=== PATIENT | male | born 1960 | race Caucasian/White ===

== ENCOUNTER 2019-01-02 21:12 | Inpatient (IN) | payer MEDICAID ==
[~2019-01-02] VITALS: Ht 177.8 cm; Wt 54.7 kg
[2019-01-02 22:28] LABS: MEAN CORPUSCULAR HEMOGLOBIN 29.7 pg (27.5-34.5); MEAN CORPUSCULAR HGB CONC 33.5 g/dL (33.2-36.2); MEAN CORPUSCULAR VOLUME 88.7 fL (81-97); MEAN PLATELET VOLUME 8.3 fL (7.4-10.4); PLATELET COUNT 444 x10^3/uL (130-400); RED CELL DISTRIBUTION WIDTH 13.2 % (9.4-14.8)
--- NOTE | 2019-01-02 22:38 | NUR ---
pt in room, c/o pain in throat and difficulty swallowing, daignosed with throat cx 06/07, stopped treatment 08/07, declined g tube 10/07.
[2019-01-02 22:40] LABS: ALBUMIN 3.4 g/dL (3.4-5.0); ANION GAP 7 mmol/L (5-15); CALCIUM 9.2 mg/dL (8.5-10.1); CHLORIDE 98 mmol/L (98-107)
[2019-01-02 22:43] LABS: ALANINE AMINOTRANSFERASE 28 U/L (12-78); ALKALINE PHOSPHATASE 148 U/L (45-117); BILIRUBIN,TOTAL 1.2 mg/dL (0.2-1.0); CREATININE 0.99 mg/dL (0.7-1.3); MD YES; TOTAL PROTEIN 8.1 g/dL (6.4-8.2)
[2019-01-02 22:45] LABS: <PLATELET ESTIMATE> INCREASED; <PLT MORPHOLOGY> NORMAL PLT MORPH; <RBC MORPHOLOGY> NORMAL; EOS#(MANUAL) 0.18 x10^3/uL (0.0-0.4); EOS% (MANUAL) 1 % (1-7); LYMPH#(MANUAL) 2.12 x10^3/uL (1-3.4); LYMPHS% (MANUAL) 12 % (22-44); MONOS#(MANUAL) 1.24 x10^3/uL (0.3-2.7); MONOS% (MANUAL) 7 % (2-9); REACTIVE LYMPHS # (MANUAL) 0.89 x10^3/uL (0-0); REACTIVE LYMPHS % (MANUAL) 5 % (0-0); SEG#(MANUAL) 13.28 x10^3/uL (1.8-6.8); SEGS% (MANUAL) 75 % (42-75)
--- NOTE | 2019-01-02 23:26 | NUR ---
NEED IV FOR CT
[2019-01-02] MEDS ORDERED: AMPICILLIN/SULBACTAM 3 GM in SODIUM CHLORIDE 0.9% 100 ML IV ONE (23:30)
[2019-01-02] MEDS ORDERED: SODIUM CHLORIDE 0.9% 1,000ML IVBOLUS ONE (23:30)
[2019-01-02] MEDS ORDERED: DEXAMETHASONE 4 MG/ML, 1ML IVPush ONE (23:30)
[2019-01-02] MEDS ORDERED: MORPHINE SULFATE 4 MG/ML, 1ML ONE (23:48)
[2019-01-02] MEDS ORDERED: DEXAMETHASONE 4 MG/ML, 1ML ONE (23:48)
[2019-01-02] MEDS: MORPHINE SULFATE 4 MG/ML, 1ML IVPush PRN (23:54)
[2019-01-03] MEDS ORDERED: OMNIPAQUE 350 MG/ML, 100ML BOTTLE ONE (00:08)
--- NOTE | 2019-01-03 00:18 | NUR ---
no cultures needed per md
[2019-01-03] MEDS ORDERED: MORPHINE SULFATE 4 MG/ML, 1ML ONE ×3 (00:48→21:33)
[2019-01-03] MEDS: MORPHINE SULFATE 4 MG/ML, 1ML IVPush PRN (00:51)
--- NOTE | 2019-01-03 00:52 | NUR ---
pt medicated for pain, awaiting admit, no additional complaints, vss
[2019-01-03] MEDS ORDERED: HYDROmorphone 1 MG/ML, 1ML VIAL IVPush PRN (01:30)
[2019-01-03] MEDS ORDERED: KETOROLAC 30 MG/1 ML IVPush ONE (01:30)
[2019-01-03] MEDS ORDERED: KETOROLAC 30 MG/1 ML ONE (01:43)
[2019-01-03] MEDS ORDERED: HYDROmorphone 1 MG/ML, 1ML VIAL ONE (01:44)
--- NOTE | 2019-01-03 01:52 | NUR ---
REPORT CALLED TO [facility]
[2019-01-03] MEDS ORDERED: PROMETHAZINE 25 MG/ML, 1ML IM PRN (02:00)
[2019-01-03] MEDS ORDERED: POLYETHYLENE GLYCOL 17 GM PACKET PO PRN (02:00)
[2019-01-03] MEDS ORDERED: HEPARIN 5,000 UNITS/ML, 1ML SQ SCH (02:00)
[2019-01-03] MEDS ORDERED: DOCUSATE 100 MG CAPSULE PO PRN (02:00)
[2019-01-03] MEDS ORDERED: ACETAMINOPHEN 325 MG TABLET PO PRN (02:00)
[2019-01-03] MEDS ORDERED: ONDANSETRON 2MG/ML, 2ML IVPush PRN (02:00)
[2019-01-03] MEDS ORDERED: hydrALAzine 20 MG/ML, 1ML IVPush PRN (02:00)
[2019-01-03] MEDS ORDERED: BISACODYL 10 MG SUPP PR PRN (02:00)
[2019-01-03] MEDS ORDERED: ONDANSETRON ODT 4 MG PO PRN (02:00)
[2019-01-03 02:06] VITALS: BP 116/71
[2019-01-03 02:46] LABS: FREE T4 (FREE THYROXINE) 1.52 ng/dL (0.76-1.46)
[2019-01-03] MEDS: D5%-0.9% NACL 1,000 ML IV SCH ×2 (03:06→08:50)
[2019-01-03] MEDS: morphine SULFATE 10 MG/ML, 1ML IVPush PRN ×3 (03:06→21:36)
[2019-01-03 03:16] LABS: HEMOGLOBIN A1C 4.3 % (4.2-6.3)
[2019-01-03] MEDS: AMPICILLIN/SULBACTAM 3 GM in SODIUM CHLORIDE 0.9% 100 ML IV SCH ×4 (06:06→23:45)
[2019-01-03 08:55] VITALS: BP 120/73
[2019-01-03 09:07] LABS: MEAN CORPUSCULAR HEMOGLOBIN 29.1 pg (27.5-34.5); MEAN CORPUSCULAR HGB CONC 33.3 g/dL (33.2-36.2); MEAN CORPUSCULAR VOLUME 87.5 fL (81-97); RED BLOOD COUNT 4.77 x10^6/uL (4.38-5.82); RED CELL DISTRIBUTION WIDTH 13.5 % (9.4-14.8)
[2019-01-03 09:11] LABS: ANION GAP 5 mmol/L (5-15); CALCIUM 8.3 mg/dL (8.5-10.1); CHLORIDE 104 mmol/L (98-107); CREATININE 0.83 mg/dL (0.7-1.3)
[2019-01-03 09:25] LABS: BASOPHILS # (AUTO) 0.02 x10^3/uL (0-0.1); BASOPHILS % (AUTO) 0 % (0-1); EOSINOPHILS % (AUTO) 0 % (1-7); LYMPHOCYTES # (AUTO) 1.02 x10^3/uL (1-3.4); LYMPHOCYTES % (AUTO) 11 % (22-44); MD SCAN; MEAN PLATELET VOLUME 8.3 fL (7.4-10.4); MONOCYTES # (AUTO) 0.32 x10^3/uL (0.2-0.8); MONOCYTES % (AUTO) 4 % (2-9); NEUTROPHILS # (AUTO) 7.87 x10^3/uL (1.8-6.8); NEUTROPHILS % (AUTO) 85 % (42-75); PLATELET COUNT 329 x10^3/uL (130-400)
[2019-01-03] MEDS: NICOTINE 7 MG/24 HR PATCH.TD24 TD SCH (09:31)
[2019-01-03] MEDS: OXYcodone IR 5MG TABLET PO PRN ×4 (11:22→23:46)
[2019-01-03] MEDS: PHENOL THROAT SPRAY BOTTLE MM PRN ×3 (14:35→20:00)
[2019-01-03 14:45] VITALS: BP 118/71
[2019-01-03 19:06] VITALS: BP 129/77
[2019-01-04 04:16] VITALS: BP 117/67
[2019-01-04] MEDS: OXYcodone IR 5MG TABLET PO PRN ×2 (04:18→08:43)
[2019-01-04 04:45] LABS: BASOPHILS # (AUTO) 0.03 x10^3/uL (0-0.1); BASOPHILS % (AUTO) 0 % (0-1); EOSINOPHILS # (AUTO) 0.13 x10^3/uL (0-0.4); EOSINOPHILS % (AUTO) 1 % (1-7); LYMPHOCYTES # (AUTO) 2.52 x10^3/uL (1-3.4); LYMPHOCYTES % (AUTO) 26 % (22-44); MD NO; MEAN CORPUSCULAR HGB CONC 33.5 g/dL (33.2-36.2); MEAN CORPUSCULAR VOLUME 89.7 fL (81-97); MEAN PLATELET VOLUME 8.7 fL (7.4-10.4); MONOCYTES # (AUTO) 0.78 x10^3/uL (0.2-0.8); MONOCYTES % (AUTO) 8 % (2-9); NEUTROPHILS # (AUTO) 6.42 x10^3/uL (1.8-6.8); NEUTROPHILS % (AUTO) 65 % (42-75); PLATELET COUNT 304 x10^3/uL (130-400); RED BLOOD COUNT 4.28 x10^6/uL (4.38-5.82); RED CELL DISTRIBUTION WIDTH 13.6 % (9.4-14.8)
[2019-01-04 04:55] LABS: ALBUMIN 2.6 g/dL (3.4-5.0); ANION GAP 3 mmol/L (5-15); CHLORIDE 105 mmol/L (98-107)
[2019-01-04 05:01] LABS: ALANINE AMINOTRANSFERASE 23 U/L (12-78); ALKALINE PHOSPHATASE 125 U/L (45-117); BILIRUBIN,TOTAL 0.4 mg/dL (0.2-1.0); CHOL/HDL RATIO 5.1; CHOLESTEROL, TOTAL 152 mg/dL (140-239); CREATININE 0.63 mg/dL (0.7-1.3); HDL CHOL % 20 % (26-37); HDL CHOLESTEROL (DIRECT) 30 mg/dL (40-60); LDL CHOLESTEROL,CALCULATED 109 mg/dL (54-169); LDL/HDL RATIO 3.6 (0.5-3.0); TOTAL PROTEIN 6.3 g/dL (6.4-8.2); TRIGLYCERIDES 64 mg/dL (50-200); VLDL CHOLESTEROL 13 mg/dL (0-25)
[2019-01-04] MEDS: AMPICILLIN/SULBACTAM 3 GM in SODIUM CHLORIDE 0.9% 100 ML IV SCH (05:31)
[2019-01-04] MEDS: morphine SULFATE 10 MG/ML, 1ML IVPush PRN (07:36)
[2019-01-04 07:37] VITALS: BP 122/68
[2019-01-04] MEDS: NICOTINE 7 MG/24 HR PATCH.TD24 TD SCH (08:44)
== END 2019-01-04 11:49 | disposition hospice, home (50) | DRG 153 ==
LOC: ED 23:33 → EDIP 01-03 01:29 → 4NW 01-03 02:00
PROVIDERS: ADMIT Internal Medicine; ATTEND Internal Medicine
DX: J02.0 Streptococcal pharyngitis (principal); E87.1 Hypo-osmolality and hyponatremia; C10.9 Malignant neoplasm of oropharynx, unspecified; F17.210 Nicotine dependence, cigarettes, uncomplicated; E86.0 Dehydration; R62.7 Adult failure to thrive; Z66 Do not resuscitate; Z51.5 Encounter for palliative care; Z72.89 Other problems related to lifestyle; Z91.19 Patient's noncompliance with other medical treatment and regimen
CPT/HCPCS: 36415; J7042; 70491; 80048; 80053; 80061; 83036; 83735; 84439; 84443; 85025; 87880; 96361; 96374; 99285; G0378; J0295; J1100; J1885; Q9967; J1170; J2270; J7030